=== PATIENT | male | born 1970 | race Caucasian/White ===

== ENCOUNTER 2016-12-07 07:55 | Day surgery (SDC) | payer OTHER ==
[2016-12-07 08:39] VITALS: BMI 25.7
[2016-12-07] MEDS ORDERED: Lactated Ringer's 500 ML IV ONE ×2 (09:59)
[2016-12-07] MEDS ORDERED: Propofol 10 mg/ml Inj (20 ML) ONE (09:59)
--- NOTE | 2016-12-07 09:59 | CP.SDSHP ---
Same Day Surgery H & P - History Proposed Procedure: COLONSCOPY Pre-Op Diagnosis: SEE NOTES - Previous Medical/Surgical History Cardiac: Hypertension Endocrine/Metabolic: Diabetes, Other Misc: Other Pain: 4.Moderate Pain - Allergies Allergies: Allergies No Known Allergies Allergy (Verified 06/24/13 08:45) - Physical Exam General Appearance: N Vital Signs: Vital Signs 12/07/16 08:57 Temperature 98.9 F Pulse Rate 80 Respiratory 20 Rate Blood Pressure 141/92 H O2 Sat by Pulse 100 Oximetry Mental Status: Alert & Oriented x3 Neuro: WNL Heart: Other Lungs: WNL GI: Other - {Optional Preform as Required} Breast: WNL Abdomen: Other Rectal: Other Integument: WNL : WNL Ortho: Other ENT: WNL - Impression Pt. Evaluated Today:Candidate for Anesthesia & Procedure: Yes - Date & Time Time: 09:59 Short Stay Discharge - Short Stay Discharge Admitting Diagnosis/Reason for Visit: RECTAL BLEEDING Disposition: HOME/ ROUTINE
[2016-12-07] MEDS ORDERED: Belladonna-Phenobarbital PO STA (10:00)
[2016-12-07] MEDS ORDERED: Lactated Ringer's 500 ML IV SCH (10:15)
[2016-12-07 11:11] VITALS: TEMP 98
[2016-12-07 11:17] VITALS: BP 135/87; PULSE 80; RESP 20; O2SAT 98
== END 2016-12-07 11:15 | disposition home or self-care (01) ==
LOC: C.ENDO 07:55
PROVIDERS: ATTEND Specialist
DX: K52.9 Noninfective gastroenteritis and colitis, unspecified (principal); K62.5 Hemorrhage of anus and rectum; K64.8 Other hemorrhoids
CPT/HCPCS: 45380; 82948; 88305; J2704; J7120

== ENCOUNTER 2017-04-10 09:34 | Day surgery (SDC) | payer OTHER ==
[2017-04-10 10:11] VITALS: BMI 21.6
[2017-04-10] MEDS ORDERED: Propofol 10 mg/ml Inj (20 ML) ONE (12:04)
--- NOTE | 2017-04-10 12:04 | CP.SDSHP ---
Same Day Surgery H & P - History Proposed Procedure: EGD Pre-Op Diagnosis: SEE NOTES - Previous Medical/Surgical History Cardiac: Hypertension Endocrine/Metabolic: Diabetes, Other Neuro: Other Misc: Other Pain: 4.Moderate Pain - Allergies Allergies: Allergies No Known Allergies Allergy (Verified 04/10/17 10:05) - Physical Exam General Appearance: N Vital Signs: Vital Signs 04/10/17 10:00 Temperature 98.6 F Pulse Rate 111 H Respiratory 20 Rate Blood Pressure 152/109 H O2 Sat by Pulse 100 Oximetry Mental Status: Alert & Oriented x3 Neuro: Other Heart: Other Lungs: WNL GI: Other - {Optional Preform as Required} Breast: WNL Abdomen: Other Rectal: Other Integument: WNL : WNL Ortho: WNL ENT: WNL - Impression Pt. Evaluated Today:Candidate for Anesthesia & Procedure: Yes - Date & Time Time: 12:06 Short Stay Discharge - Short Stay Discharge Admitting Diagnosis/Reason for Visit: FUNCTIONAL DYSPEPSIA Disposition: HOME/ ROUTINE
[2017-04-10] MEDS ORDERED: Sucralfate 1 gm/10 ml Oral Susp UD PO ONE (12:45)
[2017-04-10 14:04] VITALS: BP 132/89; PULSE 86; RESP 17; TEMP 97.5; O2SAT 100
== END 2017-04-10 13:45 | disposition home or self-care (01) ==
LOC: C.ENDO 09:34
PROVIDERS: ATTEND Specialist
DX: K29.50 Unspecified chronic gastritis without bleeding (principal); K44.9 Diaphragmatic hernia without obstruction or gangrene; K30 Functional dyspepsia; E11.9 Type 2 diabetes mellitus without complications; I10 Essential (primary) hypertension
CPT/HCPCS: 43239; 82948; 88305; J2001; J2704